=== PATIENT | male | born 1945 | race African-American/Black ===

== ENCOUNTER 2020-06-13 13:19 | Emergency (ER) | payer MEDICARE, BC ==
[~2020-06-13] VITALS: Ht 190.5 cm; Wt 102.0 kg
[~2020-06-13 13:19] MED LIST: ACET-704 PO
--- NOTE | 2020-06-13 14:15 | RAD ---
Lumbar spine AP and lateral views 06/13/2020. Reason for exam: Back pain for 5 days. No known injury. Alignment is normal. There is no apparent loss of vertebral body height or other evidence for fractur e. Intervertebral discs are fairly well maintained. Early degenerative changes are probably present a t L4-5 and L5-S1. There is no apparent destructive process. IMPRESSION: No identified acute abnormality. Electronically signed by: Leeroy Arango Jr., MD (06/13/2020 2:12 PM) [id number]
[2020-06-13 15:00] VITALS: BP 150/86
--- NOTE | 2020-06-13 15:03 | PHYS DOC ---
Past Medical History Past Medical History: High Cholesterol, Hypertension Past Surgical History: Hip Replacement Smoking Status: Never Smoker Alcohol Use: None Drug Use: None General Adult EDM: Chief Complaint: BACK PAIN OR INJURY HPI: HPI: Patient is a 75 year old male with history of hypertension, high cholesterol, who presents to the ED today complaining of throbbing 5 out of 10 right low back pain nonradiating in nature, symptoms for 4 to 5 days, symptoms began after doing yard work. Patient states symptoms are worse on activity and better with rest. Denies any loss of bowel/bladder function. Denies any trauma. Review of Systems: Review of Systems: Constitutional: Denies fever or chills. [] Back: Reports low back pain Integument: Denies rash. [] Neurologic: Denies headache, focal weakness or sensory changes. [] Endocrine: Denies polyuria or polydipsia. [] Lymphatic: Denies swollen glands. [] Psychiatric: Denies depression or anxiety. [] Heart Score: C/O Chest Pain: N/A Risk Factors: Risk Factors: DM, Current or recent (<one month) smoker, HTN, HLP, family history of CAD, obesity. Risk Scores: Score 0 - 3: 2.5% MACE over next 6 weeks - Discharge Home Score 4 - 6: 20.3% MACE over next 6 weeks - Admit for Clinical Observation Score 7 - 10: 72.7% MACE over next 6 weeks - Early Invasive Strategies Allergies: Allergies: Allergies Coded Allergies Type Severity Reaction Last Updated Verified No Known Drug Allergies 10/05/15 No Physical Exam: PE: Constitutional: Well developed, well nourished, no acute distress, non-toxic appearance. [] Abdomen: Bowel sounds normal, soft, no tenderness, no masses, no pulsatile masses. [] Skin: Warm, dry, no erythema, no rash. [] Back: No tenderness, no CVA tenderness. [] Extremities: No tenderness, no cyanosis, no clubbing, ROM intact, no edema. [] Neurologic: Alert and oriented X 3, normal motor function, normal sensory function, no focal deficits noted. [] Psychologic: Affect normal, judgement normal, mood normal. [] Current Patient Data: Vital Signs: Vital Signs Date Time Temp Pulse Resp B/P (MAP) Pulse Ox O2 Delivery O2 Flow Rate FiO2 06/13/20 13:25 98.3 56 20 169/86 (113) 99 Room Air 98.3 EKG: EKG: [] Radiology/Procedures: Radiology/Procedures: []PROCEDURE: LUMBAR SPINE 2-3V Lumbar spine AP and lateral views 06/13/2020. Reason for exam: Back pain for 5 days. No known injury. Alignment is normal. There is no apparent loss of vertebral body height or other evidence for fracture. Intervertebral discs are fairly well maintained. Early degenerative changes are probably present at L4-5 and L5-S1. There is no appar ent destructive process. IMPRESSION: No identified acute abnormality. Electronically signed by: Leeroy Dozier Jr., MD (06/13/2020 2:12 PM) [id number] DICTATED and SIGNED BY: LEEROY DOZIER Jr, MD DATE: 06/13/20 [id number] 0 Course & Med Decision Making: Course & Med Decision Making Pertinent Labs and Imaging studies reviewed. (See chart for details) This is a 75-year-old male patient presented to the ED today with back pain that began 4 to 5 days ago after doing yard work. Lumbar spine x-rays are negative. Discharge home. Follow-up with PCP. Heat recommended. Chelo Disclaimer: Chelo Disclaimer: This electronic medical record was generated, in whole or in part, using a voice recognition dictation system. Departure Departure Impression: Primary Impression: Acute lumbosacral myofascial strain Qualified Codes: S39.012A - Strain of muscle, fascia and tendon of lower back, initial encounter Disposition: 01 DC HOME SELF CARE/HOMELESS Condition: STABLE Referrals: NO PCP (PCP) Please follow-up with your primary care doctor in 1 to 2 weeks Patient Instructions: Lumbosacral Strain Additional Instructions: You were seen for low back pain. Take the prescribed medications as needed for your pain. Please follow-up with your primary care doctor in 1 to 2 weeks, consider taking a break from doing yard work for a week Scripts Meloxicam (MELOXICAM) 7.5 Mg Tablet 1 TAB PO DAILY, #20 TAB 0 Refills Prov: KARY RHODES CLOSING SPECIALIST 06/13/20 Cyclobenzaprine Hcl (CYCLOBENZAPRINE HCL) 10 Mg Tablet 1 TAB PO TID, #30 TAB Prov: KARY RHODES CLOSING SPECIALIST 06/13/20 Hydrocodone Bit/Acetaminophen (HYDROCODONE-APAP 5-325 ) 1 Tab Tablet 1 TAB PO PRN Q6HRS PRN for PAIN, #10 TAB 0 Refills Prov: KARY RHODES APRN 06/13/20 KARY RHODES APRN Jun 13, 2020 15:03
[2020-06-13] MEDS ORDERED: CYCL10TA2 PO (15:07)
[2020-06-13] MEDS ORDERED: HYDR-2761 PO (15:07)
[2020-06-13] MEDS ORDERED: MELO7.5T29 PO (15:07)
== END 2020-06-13 15:14 | disposition home or self-care (01) ==
LOC: ER 13:19
DX: S39.012A Strain of muscle, fascia and tendon of lower back, initial encounter (principal); E78.00 Pure hypercholesterolemia, unspecified; Z98.890 Other specified postprocedural states; X58.XXXA Exposure to other specified factors, initial encounter; Y93.89 Activity, other specified; Y92.89 Other specified places as the place of occurrence of the external cause; Y99.0 Civilian activity done for income or pay
CPT/HCPCS: 72100; 99283